=== PATIENT | female | born 1955 | race Caucasian/White ===

== ENCOUNTER 2018-12-11 10:51 | Day surgery (SDC) | payer BC ==
[2018-12-08 11:57] VITALS: BMI 27.3
[~2018-12-11 10:51] MED LIST: LACTATED RINGERS 1,000 ML IV SCH
[2018-12-11 11:19] VITALS: TEMP 97.6
[2018-12-11] MEDS ORDERED: LIDOCAINE 1% 20 ML VIAL (10MG/ML) FOR IV START INTRADERMA ONE (11:23)
[2018-12-11] MEDS ORDERED: PROPOFOL 10 MG/ML 20 ML VIAL IV ONE (12:57)
--- NOTE | 2018-12-11 13:21 | P.PCN ---
Date of Procedure: 12/11/18 Procedure(s) Performed: BRIEF HISTORY: Patient is a 62-year-old pleasant 8 female, scheduled for an elective colonoscopy as a part of screening for colorectal neoplasia. She was noted to have stool that was positive for cologuard. PROCEDURE PERFORMED: Colonoscopy with snare polypectomy. PREOPERATIVE DIAGNOSIS: Positive Cologuard/Screening for colon cancer. IV sedation per Anesthesia. PROCEDURE: After informed consent was obtained, the patient, was brought into the endoscopy unit. IV sedation was administered by Anesthesia under continuous monitoring. Digital rectal examination was normal. Initially the Olympus CF-160 flexible video colonoscope was then inserted in the rectum, gradually advanced into the cecum without any difficulty. Careful examination was performed as the scope was gradually being withdrawn. Ileocecal valve and the appendiceal orifice were visualized and appeared normal. Prep was excellent. Mucosa of the cecum, ascending colon, transverse colon, descending colon, sigmoid colon, and rectum appeared normal. The distal rectum there was a 5 mm of mucosal polyp that was removed by snare polypectomy Retroflexion was performed in the rectum and no lesions were seen. The patient tolerated the procedure well. IMPRESSION: 5 mm submucosal distal rectal polyp status post polypectomy Rest of the colon appeared normal RECOMMENDATIONS: Findings of this examination were discussed with the patient as well as a family.. She was advised to follow with the biopsy results. Based the biopsy results she can have a repeat surveillance colonoscopy in 5-10 years
[2018-12-11 13:42] VITALS: RESP 18
[2018-12-11 14:01] VITALS: BP 135/71; PULSE 59
== END 2018-12-11 14:03 | disposition home or self-care (01) ==
LOC: ORWHC2ENDO 10:51
PROVIDERS: ATTEND Internal Medicine Gastroenterology
DX: C7A.8 Other malignant neuroendocrine tumors (principal); E78.5 Hyperlipidemia, unspecified; Z87.891 Personal history of nicotine dependence; M19.90 Unspecified osteoarthritis, unspecified site; Z79.1 Long term (current) use of non-steroidal anti-inflammatories (NSAID); Z79.899 Other long term (current) drug therapy
CPT/HCPCS: 88305; 88342; 88341; 45385; J2704

== ENCOUNTER 2019-06-11 07:46 | Day surgery (SDC) | payer BC, MEDICAID ==
[2019-06-09 11:52] VITALS: BMI 30.4
[~2019-06-11 07:46] MED LIST changes: +LIDOCAINE 1% 20 ML VIAL (10MG/ML) FOR IV START INTRADERMA PRN
[2019-06-11 08:12] VITALS: TEMP 97.9
[2019-06-11] MEDS ORDERED: PROPOFOL 10 MG/ML 20 ML VIAL IV ONE (08:32)
[2019-06-11 08:59] VITALS: RESP 16
--- NOTE | 2019-06-11 09:01 | P.PCN ---
Date of Procedure: 06/11/19 Procedure(s) Performed: BRIEF HISTORY: Patient is a 63-year-old pleasant, white female scheduled for an elective sigmoidoscopy as a part of evaluation of rectal carcinoid there was noted in November 2018. She was noted to have a 5 mm submucosal distal rectal polyp that was removed by snare polypectomy and the biopsy revealed well- differentiated rectal carcinoid. She is scheduled for a follow-up sigmoid colonoscopy today. PROCEDURE PERFORMED: Sigmoidoscopy with snare polypectomy and hot biopsy PREOPERATIVE DIAGNOSIS: Follow-up rectal carcinoid. IV sedation per Anesthesia. PROCEDURE: After informed consent was obtained, the patient, was brought into the endoscopy unit. IV sedation was administered by Anesthesia under continuous monitoring. Digital rectal examination was normal. Initially the Olympus CF-160 flexible video colonoscope was then inserted in the rectum, gradually advanced into the infection. Careful examination was performed. Mucosa of the descending colon, sigmoid colon, and rectum appeared normal. In the distal sigmoid rectum there was a 2 mm polyp identified that was removed by snare polypectomy and adjacent to this area there was another 5 mm hyperplastic polyp seen that was also removed by snare polypectomy. There was another small area that appeared to be flat in the distal rectum that was removed by hot biopsy. Retroflexion was performed in the rectum and no lesions were seen. The patient tolerated the procedure well. Recommendations: 5 mm small distal rectal polyp status post snare polypectomy 2 mm flat polyp in the distal rectum, attempted snare polypectomy followed by hot biopsy RECOMMENDATIONS: Findings of this examination were discussed with the patient as well his family. He was advised to follow with the biopsy results. Based on the the biopsy results will plan a repeat colonoscopy in a year.
[2019-06-11 09:14] VITALS: BP 104/65; PULSE 68
== END 2019-06-11 09:35 | disposition home or self-care (01) ==
LOC: ORWHC2ENDO 07:46
PROVIDERS: ATTEND Internal Medicine Gastroenterology
DX: Z12.11 Encounter for screening for malignant neoplasm of colon (principal); K62.1 Rectal polyp; Z85.040 Personal history of malignant carcinoid tumor of rectum; M19.90 Unspecified osteoarthritis, unspecified site
CPT/HCPCS: 45338; 45333; 88305; 88342; 88341; J2704; 45331